=== PATIENT | female | born 1990 | race Caucasian/White ===

== ENCOUNTER 2019-04-30 10:17 | Emergency (ER) | payer BC ==
--- NOTE | 2019-04-30 10:31 | EDM.PDOC ---
ED HPI GENERAL MEDICAL PROBLEM - General Chief Complaint: Lower Extremity Injury/Pain Stated Complaint: HURT PINKY TOE ON RT FOOT Time Seen by Provider: 04/30/19 10:23 Source of Information: Reports: Patient History Limitations: Reports: No Limitations - History of Present Illness INITIAL COMMENTS - FREE TEXT/NARRATIVE: HISTORY AND PHYSICAL: History of present illness: Patient is a 28-year-old female presents to the ED today with concern of right big toenail injury that occurred just prior to arrival to the ED. Patient states she was at work and wearing sandals when she had opened up a metal door which caught the top of her big toe nail and had lifted back. Patient states she is not up-to-date on her tetanus vaccine. Patient states she has full sensation and movement of toe. Patient denies fever, chills, chest pain, shortness of breath, or cough. Denies headache, neck stiff ness, change in vision, syncope, or near syncope. Denies nausea, vomiting, abdominal pain, diarrhea, constipation, or dysuria. Has not noted any blood in urine or stool. Patient has been eating and drinking appropriately. Review of systems: As per history of present illness and below otherwise all systems reviewed and negative. Past medical history: As per history of present illness and as reviewed below otherwise noncontributory. Surgical history: As per history of present illness and as reviewed below otherwise noncontributory. Social history: See social history for further information Family history: As per history of present illness and as reviewed below otherwise noncontributory. Physical exam: General: Patient is alert, oriented, and in no acute distress. Patient sitting comfortably on exam table. HEENT: Atraumatic, normocephalic, pupils equal and reactive bilaterally, negative for conjunctival pallor or scleral icterus, mucous membranes moist, TMs normal bilaterally, throat clear, neck supple, nontender, trachea midline. No drooling or trismus noted. No meningeal signs. No hot potato voice noted. Lungs: Clear to auscultation, breath sounds equal bilaterally, chest nontender. Heart: S1S2, regular rate and rhythm without overt murmur Abdomen: Soft, nondistended, nontender. Negative for masses or hepatosplenomegaly. Negative for costovertebral tenderness. Pelvis: Stable nontender. Genitourinary: Deferred. Rectal: Deferred. Skin: Intact, warm, dry. No lesions or rashes noted. Extremities: negative for cords or calf pain. Neurovascular unremarkable. The right foot first digit has partial avulsion of the nail with intact nail matrix at the base of the first digit on the right foot. Patient has full range of motion of all digits on the right foot with sensation intact. Dorsalis pedis and posterior tibial pulses grossly intact. Extremity. Neuro: Awake, alert, oriented. Cranial nerves II through XII unremarkable. Cerebellum unremarkable. Motor and sensory unremarkable throughout. Exam nonfocal. Notes: Dr. Short verbally involved in patient care. Toenail was bandaged. Discussed with patient expectations for regrowth of nail. Voices understanding and is agreeable to plan of care. Denies any further questions or concerns at this time. Diagnostics: Foot XR Therapeutics: Tetanus, bandage Prescription: None Impression: Partial nail avulsion, right first digit Plan: 1. Rest, ice, elevate the affected area. You can apply ice 15 minutes on, 15 minutes off. Wear socks and closed toed shoes as discussed. 2. Tylenol and/or Ibuprofen as directed for pain management or discomfort. 3. Follow up with your primary care provider as discussed. Return to the ED as needed and as discussed. Definitive disposition and diagnosis as appropriate pending reevaluation and review of above. right great toe Pain Score (Numeric/FACES): 3 - Related Data Allergies Allergy/AdvReac Type Severity Reaction Status Date / Time hydrocodone Allergy Hives Verified 04/30/19 10:27 Home Meds: Home Meds Doxycycline [Vibramycin] 100 mg PO DAILY 04/30/19 [History] lamoTRIgine [Lamotrigine] 100 mg PO DAILY 04/30/19 [History] Review of Systems - Review of Systems Review Of Systems: ROS reveals no pertinent complaints other than HPI. ED EXAM, GENERAL - Physical Exam Exam: See Below (See dictation) Course - Vital Signs Last Recorded V/S: Last Vital Signs Temp 36.1 C 04/30/19 10:38 Pulse 90 04/30/19 10:38 Resp 16 04/30/19 10:38 BP 148/83 H 04/30/19 10:38 Pulse Ox 97 04/30/19 10:38 - Orders/Labs/Meds Orders: Active Orders 24 hr Category Date Time Status Vaccines to be Administered [RC] PER UNIT ROUTINE Care 04/30/19 10:48 Active Meds: Medications Discontinued Medications Generic Name Dose Route Start Last Admin Trade Name Tung PRN Reason Stop Dose Admin Diphtheria/Tetanus/Acell Pertussis 0.5 ml 04/30/19 10:48 04/30/19 11:04 Adacel IM 04/30/19 10:49 0.5 ml .ONCE ONE Administration Departure - Departure Time of Disposition: 11:14 Disposition: Home, Self-Care 01 Clinical Impression: Nail avulsion of toe Qualifiers: Encounter type: initial encounter Qualified Code(s): S91.209A - Unspecified open wound of unspecified toe(s) with damage to nail, initial encounter - Discharge Information Referrals: Carolyn De Paz DO [Primary Care Provider] - Forms: ED Department Discharge Additional Instructions: The following information is given to patients seen in the emergency department who are being discharged to home. This information is to outline your options for follow-up care. We provide all patients seen in our emergency department with a follow-up referral. The need for follow-up, as well as the timing and circumstances, are variable depending upon the specifics of your emergency department visit. If you don't have a primary care physician on staff, we will provide you with a referral. We always advise you to contact your personal physician following an emergency department visit to inform them of the circumstance of the visit and for follow-up with them and/or the need for any referrals to a consulting specialist. The emergency department will also refer you to a specialist when appropriate. This referral assures that you have the opportunity for follow-up care with a specialist. All of these measure are taken in an effort to provide you with optimal care, which includes your follow-up. Under all circumstances we always encourage you to contact your private physician who remains a resource for coordinating your care. When calling for follow-up care, please make the office aware that this follow-up is from your recent emergency room visit. If for any reason you are refused follow-up, please contact the [facility] Emergency Department at and asked to speak to the emergency department charge nurse. [facility] [address] [place] [id number] [facility] [address] [place] [id number] 1. Rest, ice, elevate the affected area. You can apply ice 15 minutes on, 15 minutes off. Wear socks and closed toed shoes as discussed. 2. Tylenol and/or Ibuprofen as directed for pain management or discomfort. 3. Follow up with your primary care provider as discussed. Return to the ED as needed and as discussed. - My Orders Last 24 Hours: My Active Orders 04/30/19 10:48 Vaccines to be Administered [RC] PER UNIT ROUTINE - Assessment/Plan Last 24 Hours: My Active Orders 04/30/19 10:48 Vaccines to be Administered [RC] PER UNIT ROUTINE
[2019-04-30] MEDS ORDERED: Diphtheria,Pertussis(Acell),Tetanus Vaccine 0.5 ML Syringe IM ONE (10:48)
--- NOTE | 2019-04-30 11:11 | CR ---
INDICATION: Pulled metal door over foot. Ripped big toenail almost off. TECHNIQUE: Two-views of the right foot. FINDINGS: The nail of the great toe is displaced anteriorly. No obvious fracture or dislocation. No radiopaque foreign bodies. No destructive or osteolytic lesions. Dictated by Que Bernardo MD @ Apr 30 2019 11:06AM Signed by Dr. Que Bernardo @ Apr 30 2019 11:09AM
== END 2019-04-30 11:33 | disposition home or self-care (01) ==
LOC: MW.ED 10:17
DX: S91.201A Unspecified open wound of right great toe with damage to nail, initial encounter (principal); Z88.5 Allergy status to narcotic agent; Z79.899 Other long term (current) drug therapy; Z23 Encounter for immunization; W23.0XXA Caught, crushed, jammed, or pinched between moving objects, initial encounter
CPT/HCPCS: 73620-26-RT; 73620-RT; 90471; 90715; 99283; 99283-25